=== PATIENT | male | born 1985 | race Caucasian/White ===

== ENCOUNTER 2020-10-23 18:53 | Inpatient (IN) ==
[2020-10-23] MEDS ORDERED: Haloperidol Lactate 5 MG/ML VIAL IM PRN (20:21)
[2020-10-23] MEDS ORDERED: Mag Hydrox/Al Hydrox/Simeth 30 ML UDC PO PRN (20:21)
[2020-10-23] MEDS ORDERED: *HR* LORazepam 1 MG TABLET PO PRN (20:21)
[2020-10-23] MEDS ORDERED: *HR* LORazepam 2 MG/ML VIAL IM PRN (20:21)
[2020-10-23] MEDS ORDERED: haloperidoL 5 MG TABLET PO PRN (20:21)
[2020-10-23] MEDS ORDERED: MOM Conc 10 ML UD.LIQ PO PRN (20:21)
[2020-10-23] MEDS ORDERED: Ibuprofen 400 MG TABLET PO PRN (20:21)
[2020-10-23] MEDS: hydrOXYzine pamoate 25 MG CAPSULE PO PRN (22:10)
[2020-10-23] MEDS: traZODone 50 MG TABLET PO PRN (22:10)
[2020-10-23] MEDS: Nicotine 21 MG PATCH.TD24 TD SCH (22:16)
[2020-10-24] MEDS: Nicotine 21 MG PATCH.TD24 TD SCH (08:39)
[2020-10-24] MEDS: hydrOXYzine pamoate 25 MG CAPSULE PO PRN (21:08)
[2020-10-24] MEDS: traZODone 50 MG TABLET PO PRN (21:08)
[2020-10-25] MEDS: Nicotine 21 MG PATCH.TD24 TD SCH (08:55)
[2020-10-25] MEDS: traZODone 50 MG TABLET PO PRN (20:59)
[2020-10-25] MEDS: hydrOXYzine pamoate 25 MG CAPSULE PO PRN (20:59)
[2020-10-26] MEDS: Nicotine 21 MG PATCH.TD24 TD SCH (08:30)
[2020-10-26 09:28] VITALS: BP 116/80
== END 2020-10-26 11:15 | disposition home or self-care (01) | DRG 885 ==
LOC: EMEROOARM 18:53 → 1ANU 20:07
PROVIDERS: ADMIT Psychiatry & Neurology Psychiatry; ATTEND Psychiatry & Neurology Psychiatry